=== PATIENT | female | born 1950 | race Native Hawaiian/Other Pacific Islander ===

== ENCOUNTER 2018-10-11 14:10 | Outpatient (CLI) | payer OTHER | END 2018-10-11 23:57 | disposition home or self-care (01) | LOC: RAD 14:10 | DX: M85.89 Other specified disorders of bone density and structure, multiple sites (principal) ==

== ENCOUNTER 2019-12-19 14:41 | Outpatient (CLI) | payer OTHER | END 2019-12-19 22:18 | disposition home or self-care (01) | LOC: RAD 14:41 | DX: M85.89 Other specified disorders of bone density and structure, multiple sites (principal) ==

== ENCOUNTER 2021-07-12 15:01 | Outpatient (CLI) | payer OTHER | END 2021-07-12 19:07 | disposition home or self-care (01) | LOC: RAD 15:01 | PROVIDERS: ATTEND Nurse Practitioner Family | DX: E55.9 Vitamin D deficiency, unspecified (principal); E56.8 Deficiency of other vitamins; M47.816 Spondylosis without myelopathy or radiculopathy, lumbar region; M81.0 Age-related osteoporosis without current pathological fracture; Z79.899 Other long term (current) drug therapy ==